=== PATIENT | female | born 1975 | race Caucasian/White ===

== ENCOUNTER 2017-10-15 22:05 | Emergency (ER) | payer OTHER ==
[~2017-10-15] VITALS: Ht 177.8 cm; Wt 81.7 kg
[~2017-10-15 22:05] MED LIST: CLONAZEPAM0.5 M1 SL; CLONAZEPAM0.5 MG PO; HYDROXYZINE HCL25 MG PO; LEVOXYL175 MCG PO; PROPRANOLOL HCL20 MG PO
[2017-10-16] MEDS ORDERED: NORCO 5-325 TA1 EACH PO (00:43)
== END 2017-10-16 00:55 | disposition home or self-care (01) ==
LOC: ED 22:05
DX: S22.32XA Fracture of one rib, left side, initial encounter for closed fracture (principal); F17.200 Nicotine dependence, unspecified, uncomplicated; Z79.899 Other long term (current) drug therapy; W18.40XA Slipping, tripping and stumbling without falling, unspecified, initial encounter
CPT/HCPCS: 71101; 99283

== ENCOUNTER 2024-08-27 19:53 | Emergency (ER) | payer OTHER ==
[~2024-08-27] VITALS: Ht 177.8 cm; Wt 79.1 kg
[~2024-08-27 19:53] MED LIST changes: +NORCO 5-325 TA1 EACH PO
[2024-08-27 20:15] LABS: BASOPHILS 0.5 % (0.1-1.2); EOSINOPHILS 2.1 % (0.7-5.8); HEMATOCRIT 41.8 % (34.1-44.9); HEMOGLOBIN 14.4 g/dL (11.2-15.7); LYMPHOCYTES 28.2 % (19.3-51.7); MCH 34.2 PG (25.6-32.2); MCHC 34.4 g/dL (32.2-35.5); MCV 99.3 fL (79.4-94.8); MONOCYTES 7.2 % (4.7-12.5); NEUTROPHILS 61.6 % (34.0-71.1); PLATELET COUNT 160 K/uL (182-369); RBC 4.21 M/uL (3.93-5.22)
[2024-08-27 20:25] LABS: INR 1.12 (0.80-1.30)
[2024-08-27 20:35] LABS: ALBUMIN 3.7 g/dL (3.4-5.0); ALBUMIN/GLOBULIN RATIO 0.88 (1.1-2.4); ANION GAP 10.3 (7-21); BILIRUBIN, TOTAL 1.6 mg/dL (0.2-1.0); BUN/CREATININE RATIO 8.62 (6.0-28.6); CREATININE, SERUM 0.58 mg/dL (0.55-1.02); POTASSIUM 3.3 mmol/L (3.5-5.1); PROTEIN, TOTAL 7.9 g/dL (6.4-8.2)
[2024-08-27 20:37] LABS: MAGNESIUM 1.5 mg/dL (1.8-2.4)
[2024-08-27] MEDS ORDERED: MAGNESIUM SULFATE 2 GM/50 ML BAG IV ONE (22:15)
[2024-08-27 22:55] VITALS: BP 132/92
[2024-08-27] MEDS ORDERED: MAGNESIUM OXID400 M1 PO (23:11)
--- NOTE | 2024-08-28 08:28 | EKG ---
[facility] [address] [facility] [place] [address] Signed Sinus tachycardia Possible Left atrial enlargement Borderline ECG No previous ECGs available Confirmed by Piero Quevedo MD ([id number]) on 08/28/2024 8:28:28 AM Electronically Signed By: PIERO QUEVEDO MD 08/28/24827 PATIENT NAME: CHICA HOGUE HOLDEN Electrocardiogram DATE OF : 71 PHYSICIAN: PIERO QUEVEDO MD REPORT #: [id number] REPORT IS CONFIDENTIAL AND NOT TO BE RELEASED WITHOUT AUTHORIZATION
[2024-08-29 11:58] LABS: FERRITIN 293 ng/mL (13-150)
[2024-08-29 17:01] LABS: IRON BINDING CAPACITY TOTAL 352 ug/dL (240-450); IRON,SERUM OR PLASMA 138 ug/dL (28-170); TRANSFERRIN SATURATION 39 %sat (20-50)
== END 2024-08-27 23:24 | disposition home or self-care (01) ==
LOC: ED 19:53
PROVIDERS: Family Medicine
DX: E83.42 Hypomagnesemia (principal); E83.119 Hemochromatosis, unspecified; F43.10 Post-traumatic stress disorder, unspecified; F17.200 Nicotine dependence, unspecified, uncomplicated; Z79.890 Hormone replacement therapy
CPT/HCPCS: 36415; 80053; 82728; 83550; 83735; 84484; 85025; 85610; 93005; 93010; 99285; J3475